=== PATIENT | female | born 1950 | race African-American/Black ===

== ENCOUNTER → 2016-12-18 | Outpatient (CLI) | payer MEDICAID ==
--- NOTE | 2016-12-18 10:57 | WOMENS IMAGING REPORT ---
EXAM DESCRIPTION: BONE DENSITY HIP/SPINE COMPLETED DATE/TIME: 12/18/2016 10:45 am REASON FOR STUDY: M81.8 Z12.31 ENCNTR SCREEN MAMMOGRAM FOR MALIGNANT NEOPLASM OF [place] M81.8 OTHER O STEOPOROSIS WITHOUT CURRENT PATHOLOGICAL FRACTU COMPARISON: None. TECHNIQUE: Dual-Energy X-ray Absorptiometry (DEXA) of the AP Spine and Hip. LIMITATIONS: None. FINDINGS: LUMBAR SPINE: The bone mineral density (BMD) measured from L1-L4 in the AP projection correlates with a T-score of - 0.8, which is normal as defined by the World Health Organization. HIP: The bone mineral density (BMD) measured in the left femoral neck at the hip correlates with a T-score of -1.0, which is osteopenic as defined by the World Health Organization. IMPRESSION: 1. LUMBAR SPINE: Normal 2. HIP: Osteopenic COMMENT: The World Health Organization defines low BMD as follows: T-score: Normal: Greater than -1.0 Osteopenia: Between -1.0 and -2.5 Osteoporosis: Less than -2.5 without fractures Established osteoporosis: Less than -2.5 with fractures In general, you may wish to consider: Diagnosis Treatment Follow-up DEXA Normal BMD Prevention 2-3 years Osteopenia Prevention/Therapy 1-2 years Osteoporosis Therapy Yearly TECHNICAL DOCUMENTATION: JOB ID: [id number]- All Rights Reserved
--- NOTE | 2016-12-18 12:37 | WOMENS IMAGING REPORT ---
EXAM DESCRIPTION: BILAT SCREENING MAMMO W/CAD COMPLETED DATE/TIME: 12/18/2016 10:44 am REASON FOR STUDY: Z12.31, ROUTINE SCREENIG MAMMO Z12.31 ENCNTR SCREEN MAMMOGRAM FOR MALIGNANT NEOPL ASM OF [place] M81.8 OTHER OSTEOPOROSIS WITHOUT CURRENT PATHOLOGICAL FRACTU COMPARISON: None. TECHNIQUE: Standard craniocaudal and mediolateral oblique views of each breast recorded using digita l acquisition. LIMITATIONS: None. FINDINGS: Findings present which are benign by mammographic criteria. No suspicious masses, calcifi cations or architectural distortion. Pertinent benign findings: Benign skin and benign vascular calcifications bilaterally Read with the assistance of CAD. .[facility] - R2 Cenova Version 1.3 .[facility] - R2 Cenova Version 1.3 .[facility] - R2 Cenova Version 2.4 .[facility] [place] R2 Cenova Version 2.4 .[facility] BEDS AT THE [facility] - R2 Vp Lab Version 9.2 Benign mammographic findings may include one or more of the following: Smooth masses, popcorn/rim/co arse calcifications, asymmetries, post-procedure changes, and lesions with long-standing stability. IMPRESSION: BENIGN MAMMOGRAPHIC FINDINGS. BIRADS 2 BREAST DENSITY: b. There are scattered areas of fibroglandular density. BIRAD: 2 BENIGN FINDING(S) RECOMMENDATION: ROUTINE SCREENING Please consider bilateral screening tomosynthesis in December 2017 COMMENT: The patient has been notified of the results by letter per [place] requirements. Additional no tification policies are in place for contacting patient with suspicious or incomplete findings. Quality ID #[id number]: The [employer] recommends an annual screening mammogram for women aged 40 years or over. This facility utilizes a reminder system to ensure that all patients receive reminder letters, and/or direct phone calls for appointments. This includes reminders for routine scr eening mammograms, diagnostic mammograms, or other Breast Imaging Interventions when appropriate. Th is patient will be placed in the appropriate reminder system. The [employer] (ACR) has developed recommendations for screening MRI of the breast s in certain patient populations, to be used in conjunction with mammography. Breast MRI surveillanc e may be appropriate for women with more than 20% lifetime risk of developing breast cancer as deter mined by genetic testing, significant family history of the disease, or history of mantle radiation f or Hodgkins Disease. ACR Practice Guidelines 2008. TECHNICAL DOCUMENTATION: FINDING NUMBER: (1) ASSESSMENT: (1) JOB ID: [id number] [employer]- All Rights Reserved
== END ==
LOC: WI 09:50
PROVIDERS: ATTEND Nurse Practitioner Family
DX: Z12.31 Encounter for screening mammogram for malignant neoplasm of breast (principal); M81.8 Other osteoporosis without current pathological fracture
CPT/HCPCS: 77080; G0202; 77067

== ENCOUNTER → 2017-02-06 | Outpatient (CLI) | payer MEDICARE, MEDICAID ==
[2017-02-06 11:08] LABS: HEMATOCRIT 43.4 % (36.0-47.0); HEMOGLOBIN 14.5 g/dL (12.0-15.5); HGB HCT DIFFERENCE 0.1; MEAN CORPUSCULAR HEMOGLOBIN 31.5 pg (27.0-33.4); MEAN CORPUSCULAR HGB CONC 33.3 g/dL (32.0-36.0); MEAN CORPUSCULAR VOLUME 95 fl (80-97); RED BLOOD COUNT 4.58 10^6/uL (3.72-5.28); RED CELL DISTRIBUTION WIDTH 16.4 % (11.5-14.0); WHITE BLOOD COUNT 4.8 10^3/uL (4.0-10.5)
[2017-02-06 11:12] LABS: APPEARANCE,URINE SLIGHTLY-CLOUDY; BILIRUBIN,URINE NEGATIVE (NEGATIVE); GLUCOSE, URINE NEGATIVE (NEGATIVE); KETONES,URINE NEGATIVE (NEGATIVE); LEUKOCYTE ESTERASE,URINE NEGATIVE (NEGATIVE); NITRITE,URINE NEGATIVE (NEGATIVE); PROTEIN,URINE NEGATIVE (NEGATIVE); URINE SPECIFIC GRAVITY 1.016
[2017-02-06 11:27] LABS: RBC,URINE RARE /HPF
[2017-02-06 11:28] LABS: HYALINE CASTS, URINE 30-50 /LPF
[2017-02-06 11:29] LABS: BACTERIA,URINE 2+ /HPF
[2017-02-06 11:43] LABS: ANION GAP 18 (5-19); BLOOD UREA NITROGEN 23 mg/dL (7-20); CALCIUM 10.6 mg/dL (8.4-10.2); CARBON DIOXIDE 27 mmol/L (22-30); CHLORIDE 106 mmol/L (98-107); CREATININE RESULT 1.58 mg/dL (0.52-1.25); GLUCOSE 124 mg/dL (75-110); POTASSIUM 4.1 mmol/L (3.6-5.0); SODIUM 150.6 mmol/L (137-145)
== END ==
LOC: OD 09:42
PROVIDERS: ATTEND Physician Assistant Medical
DX: I12.9 Hypertensive chronic kidney disease with stage 1 through stage 4 chronic kidney disease, or unspecified chronic kidney disease (principal); N18.2 Chronic kidney disease, stage 2 (mild); E11.9 Type 2 diabetes mellitus without complications
CPT/HCPCS: 36415; 80048; 81001; 85027

== ENCOUNTER → 2017-02-11 | Outpatient (CLI) | payer MEDICARE, MEDICAID ==
[2017-02-11 13:30] LABS: ANION GAP 15 (5-19); BLOOD UREA NITROGEN 28 mg/dL (7-20); CALCIUM 10.5 mg/dL (8.4-10.2); CARBON DIOXIDE 27 mmol/L (22-30); CHLORIDE 103 mmol/L (98-107); CREATININE RESULT 1.44 mg/dL (0.52-1.25); GLUCOSE 126 mg/dL (75-110); POTASSIUM 4.2 mmol/L (3.6-5.0); SODIUM 144.6 mmol/L (137-145)
== END ==
LOC: OD 12:09
PROVIDERS: ATTEND Physician Assistant Medical
DX: E87.0 Hyperosmolality and hypernatremia (principal)
CPT/HCPCS: 36415; 80048

== ENCOUNTER → 2017-04-17 | Outpatient (CLI) | payer MEDICARE, MEDICAID ==
[2017-04-17 14:19] LABS: APPEARANCE,URINE SLIGHTLY-CLOUDY; BILIRUBIN,URINE NEGATIVE (NEGATIVE); GLUCOSE, URINE NEGATIVE (NEGATIVE); KETONES,URINE NEGATIVE (NEGATIVE); LEUKOCYTE ESTERASE,URINE NEGATIVE (NEGATIVE); NITRITE,URINE NEGATIVE (NEGATIVE); PROTEIN,URINE 100 mg/dL (NEGATIVE); URINE SPECIFIC GRAVITY 1.019
[2017-04-17 14:21] LABS: HEMATOCRIT 36.3 % (36.0-47.0); HEMOGLOBIN 11.9 g/dL (12.0-15.5); HGB HCT DIFFERENCE -0.6; MEAN CORPUSCULAR HGB CONC 32.8 g/dL (32.0-36.0); MEAN CORPUSCULAR VOLUME 98 fl (80-97); RED BLOOD COUNT 3.72 10^6/uL (3.72-5.28); RED CELL DISTRIBUTION WIDTH 16.9 % (11.5-14.0)
[2017-04-17 14:53] LABS: ANION GAP 15 (5-19); BLOOD UREA NITROGEN 14 mg/dL (7-20); CALCIUM 9.4 mg/dL (8.4-10.2); CARBON DIOXIDE 27 mmol/L (22-30); CHLORIDE 108 mmol/L (98-107); CREATININE RESULT 1.26 mg/dL (0.52-1.25); GLUCOSE 114 mg/dL (75-110); POTASSIUM 4.5 mmol/L (3.6-5.0)
[2017-04-19 14:38] LABS: CREATININE URINE 204.2 mg/dL (Not Estab.); MICROALBUMIN URINE 338.9 ug/mL (Not Estab.)
== END ==
LOC: OD 13:00
PROVIDERS: ATTEND Physician Assistant Medical
DX: I12.9 Hypertensive chronic kidney disease with stage 1 through stage 4 chronic kidney disease, or unspecified chronic kidney disease (principal); N18.3 Chronic kidney disease, stage 3 (moderate); E11.9 Type 2 diabetes mellitus without complications; E87.1 Hypo-osmolality and hyponatremia
CPT/HCPCS: 36415; 80048; 81001; 82043; 82570; 85027

== ENCOUNTER → 2017-04-21 | Outpatient (CLI) | payer MEDICARE, MEDICAID ==
[2017-04-21 13:41] LABS: ANION GAP 15 (5-19); BLOOD UREA NITROGEN 20 mg/dL (7-20); CALCIUM 9.4 mg/dL (8.4-10.2); CARBON DIOXIDE 28 mmol/L (22-30); CHLORIDE 102 mmol/L (98-107); GLUCOSE 102 mg/dL (75-110); POTASSIUM 4.2 mmol/L (3.6-5.0); SODIUM 144.8 mmol/L (137-145)
== END ==
LOC: OD 12:02
PROVIDERS: ATTEND Internal Medicine Nephrology
DX: E87.0 Hyperosmolality and hypernatremia (principal)
CPT/HCPCS: 36415; 80048

== ENCOUNTER 2017-05-15 10:58 | Emergency (ER) | payer MEDICARE, MEDICAID ==
[2017-05-15] MEDS ORDERED: DIGOXIN INJ 0.5 MG/2 ML AMPULE IV ONE (11:15)
--- NOTE | 2017-05-15 11:15 | ER Document Report ---
ED General - General Stated Complaint: CHEST PAIN Time Seen by Provider: 05/15/17 11:10 Notes: 67-year-old female with a history of congestive heart failure seen by Dr. Lockhart presents after being gradually more unresponsive in the car ride over to her renal doctor. Limited information is available from her son but she was brought in from the waiting room unresponsive by nursing. Her son Jesse states that she is pending defibrillator placement, and has been getting worsening leg and abdominal swelling. She was talking when he got her in the car this morning and then she became unresponsive. She did not complain of any chest pain, no history is available beyond this. TRAVEL OUTSIDE OF THE [place] IN LAST 30 DAYS: No - Related Data Allergies/Adverse Reactions: No Known Allergies Allergy (Verified 05/15/17 12:00) Past Medical History - General Information source: Relative - Social History Smoking Status: Unknown if Ever Smoked Family History: DM - Past Medical History Cardiac Medical History: Reports: Hx Atrial Fibrillation, Hx Hypertension Endocrine Medical History: Reports: Hx Diabetes Mellitus Type 2 Renal/ Medical History: Denies: Hx Peritoneal Dialysis Past Surgical History: Reports: Other - Dental extraction. Review of Systems - Review of Systems Notes: REVIEW OF SYSTEMS Unavailable secondary to altered mental status PHYSICAL EXAMINATION General: Unresponsive Head: Atraumatic, normocephalic ENT: Mouth normal, oropharynx moist, no exudates o Eyes: Conjunctiva normal, pupils equal, lids normal good gaze conjugate. Neck: Positive JVD, supple, no guarding CVS: Tachycardic regular Resp: N normal rate crackles at the bases diminished at bases GI: Markedly distended but soft. Abdominal wall edema present. Ext: Severe bilateral lower extremity edema, anasarca Back: No lesions or deformities Skin: No rash, warm Lymphatic: No lymphadeopathy noted Neuro: Opens eyes to pain only nonverbal -: Yes ROS unobtainable due to patient's medical condition Physical Exam - Vital signs Vitals: Resp 39 H 05/15/17 11:00 Course - Re-evaluation Re-evalutation: 05/15/17 11:14 Patient with apparent end-stage heart failure presents with altered mental status. She is tachycardic atrial for ablation hypotensive and altered. Suspect rapid A. fib cardiogenic shock and end-stage heart failure. Brief echocardiogram shows ascites extremely poor contractility trace pericardial effusion and dilated IVC. Since this is been gradual I do not think this represents pulmonary embolus. I will load her with digoxin, have Levophed at the bedside, give her a judicious fluid bolus, get basic labs including BNP troponin. I discussed with her son Jesse he wants aggressive care up to including intubation, cardioversion, and ACLS type care. 05/15/17 11:26 Patient's reassessment about 11:25 AM shows a blood pressure in the 100s a heart rate in the 110s, this is an improvement. Her mental status is slightly better and she is slightly more awake. Labs are still pending. Reviewed the case with Dr. Lockhart her business director. He does not think she needs to be cardioverted and agrees with rate control, carefully with the digoxin. Given this I want to make sure her potassium is normal given that she has a history of renal failure. Amiodarone would be my alternative. Still in mild cardiac shock I think however not in need of any pressors at this time. Will initiate transfer to [facility] for further care for this advanced heart failure. 05/15/17 12:54 Patient was accepted by Dr. Galdamez it [facility]. On reassessment she is awake and alert. Her creatinine is returned elevated. Her potassium is borderline elevated but there are no EKG changes. I will defer treatment of this divided. Helicopter is almost her. - Vital Signs Vital signs: Temp Pulse Resp BP Pulse Ox 97.7 F 25 H 92/81 L 73 L 05/15/17 12:37 05/15/17 12:37 05/15/17 12:37 05/15/17 12:06 - Laboratory Result Diagrams: 05/15/17 11:05 05/15/17 11:05 Laboratory results interpreted by me: 05/15/17 05/15/17 05/15/17 11:05 11:05 11:05 MCHC 31.2 L RDW 17.1 H PT 17.3 H VBG pCO2 VBG HCO3 Potassium 5.1 H Carbon Dioxide 19 L Anion Gap 22 H BUN 57 H Creatinine 4.36 H Est GFR ( Amer) 12 L Est GFR (Non-Af Amer) 10 L Glucose 186 H Lactic Acid Total Bilirubin 2.6 H Direct Bilirubin 2.0 H AST 45 H Alkaline Phosphatase 173 H Creatine Kinase 148 H NT-Pro-B Natriuret Pep Total Protein 8.5 H Urine Protein Urine Glucose (UA) Urine Ketones Urine Blood Urine Urobilinogen 05/15/17 05/15/17 05/15/17 11:05 11:05 11:05 MCHC RDW PT VBG pCO2 32.8 L VBG HCO3 19.3 L Potassium Carbon Dioxide Anion Gap BUN Creatinine Est GFR ( Amer) Est GFR (Non-Af Amer) Glucose Lactic Acid 5.7 H Total Bilirubin Direct Bilirubin AST Alkaline Phosphatase Creatine Kinase NT-Pro-B Natriuret Pep 12478 H Total Protein Urine Protein Urine Glucose (UA) Urine Ketones Urine Blood Urine Urobilinogen 05/15/17 12:10 MCHC RDW PT VBG pCO2 VBG HCO3 Potassium Carbon Dioxide Anion Gap BUN Creatinine Est GFR ( Amer) Est GFR (Non-Af Amer) Glucose Lactic Acid Total Bilirubin Direct Bilirubin AST Alkaline Phosphatase Creatine Kinase NT-Pro-B Natriuret Pep Total Protein Urine Protein 30 H Urine Glucose (UA) 50 H Urine Ketones TRACE H Urine Blood MODERATE H Urine Urobilinogen 2.0 H Procedures - Ultrasound/Bedside Ultrasound/Bedside Time completed: 11:20 - Cardiac ultrasound Notes: 05/15/17 11:38 Very poor cardiac output. Trace pericardial effusion. Dilated non-collapsing inferior vena cava. Positive abdominal free fluid. Critical Care Note - Critical Care Note Total time excluding time spent on procedures (mins): 71 Comments: The above patient is critically ill. Not including procedures, but including direct re-evaluations, speaking with patient and/or consultants, interpreting results, and documenting, I spent the total amount of minute listed listed above on critical care time Discharge - Discharge Clinical Impression: Acute encephalopathy, Right heart failure with reduced right ventricular function Condition: Critical Disposition: Critical Access Hospital Referrals: Kaz FERNANDEZ MD [Primary Care Provider] - Follow up as needed
[2017-05-15] MEDS ORDERED: NOREPINEPHRINE BITARTRATE INJ/PF 4 MG/4 ML SDV IV ONE (11:16)
[2017-05-15] MEDS ORDERED: DEXTROSE 5%-WATER 250 ML with NOREPINEPHRINE BITARTRATE 4 MG IV PRN ×2 (11:17)
[2017-05-15 11:31] LABS: PROTHROMBIN TIME 17.3 SEC (11.4-15.4)
[2017-05-15 11:36] LABS: HEMOGLOBIN 12.3 g/dL (12.0-15.5); WHITE BLOOD COUNT 5.3 10^3/uL (4.0-10.5)
[2017-05-15 11:37] LABS: VENOUS BLOOD BASE EXCESS -4.8 mmol/L; VENOUS BLOOD HCO3 19.3 mmol/L (20-32); VENOUS BLOOD PCO2 32.8 mmHg (35-63); VENOUS BLOOD PH 7.39 (7.30-7.42)
[2017-05-15 11:41] LABS: HEMATOCRIT 39.5 % (36.0-47.0); HGB HCT DIFFERENCE -2.6; MEAN CORPUSCULAR HEMOGLOBIN 29.7 pg (27.0-33.4); MEAN CORPUSCULAR HGB CONC 31.2 g/dL (32.0-36.0); MEAN CORPUSCULAR VOLUME 95 fl (80-97); RED BLOOD COUNT 4.15 10^6/uL (3.72-5.28); RED CELL DISTRIBUTION WIDTH 17.1 % (11.5-14.0)
[2017-05-15 12:00] LABS: ABSOLUTE EOSINOPHILS# (MANUAL) 0.1 10^3/uL (0.0-0.6); BASOPHILS % (MANUAL) 1 % (0-2); EOSINOPHILS % (MANUAL) 1 % (0-6); LYMPHOCYTES % (MANUAL) 28 % (13-45); TOTAL CELLS COUNTED 100
[2017-05-15 12:02] LABS: TROPONIN I < 0.012 ng/mL
[2017-05-15 12:04] LABS: ANISOCYTOSIS 1+; TOXIC GRANULATION 1+; TOXIC VACUOLATION PRESENT
--- NOTE | 2017-05-15 12:12 | RADIOLOGY REPORT (SQ) ---
EXAM DESCRIPTION: CHEST SINGLE VIEW COMPLETED DATE/TIME: 05/15/2017 11:53 am REASON FOR STUDY: bed t1 sepsis COMPARISON: 04/06/2017. NUMBER OF VIEWS: One view. TECHNIQUE: Single frontal radiographic view of the chest acquired. LIMITATIONS: None. FINDINGS: LUNGS AND PLEURA: No opacities, masses or pneumothorax. No pleural effusion. MEDIASTINUM AND HILAR STRUCTURES: No masses. Contour normal. HEART AND VASCULAR STRUCTURES: Heart enlarged without failure. Normal vasculature. BONES: No acute findings. HARDWARE: None in the chest. OTHER: No other significant finding. IMPRESSION: HEART ENLARGED WITHOUT FAILURE. NO OTHER SIGNIFICANT RADIOGRAPHIC FINDING IN THE CHEST. TECHNICAL DOCUMENTATION: JOB ID: [id number] [employer]- All Rights Reserved
[2017-05-15 12:14] LABS: BLOOD UREA NITROGEN 57 mg/dL (7-20); CALCIUM 9.5 mg/dL (8.4-10.2); CARBON DIOXIDE 19 mmol/L (22-30); CREATININE RESULT 4.36 mg/dL (0.52-1.25); GLUCOSE 186 mg/dL (75-110); POTASSIUM 5.1 mmol/L (3.6-5.0)
[2017-05-15 12:22] LABS: ALANINE AMINOTRANSFERASE 27 U/L (9-52); ALBUMIN 4.2 g/dL (3.5-5.0); ALKALINE PHOSPHATASE 173 U/L (38-126); ASPARTATE AMINO TRANSFERASE 45 U/L (14-36); BILIRUBIN,TOTAL 2.6 mg/dL (0.2-1.3); CHLORIDE 100 mmol/L (98-107); SODIUM 140.5 mmol/L (137-145); TOTAL PROTEIN 8.5 g/dL (6.3-8.2)
[2017-05-15 12:28] LABS: ANION GAP 22 (5-19)
--- NOTE | 2017-05-15 12:32 | EKG REPORT ---
SEVERITY:- ABNORMAL ECG - A. FIB AND ATRIAL FLUTTER VENTRICULAR PREMATURE COMPLEX RIGHT AXIS DEVIATION LOW VOLTAGE THROUGHOUT BORDERLINE R WAVE PROGRESSION, ANTERIOR LEADS NONSPECIFIC T ABNORMALITIES, LATERAL LEADS : Confirmed by: Kevin Armas 15-May-2017 12:31:59
[2017-05-15 12:35] LABS: CREATINE KINASE 148 U/L (30-135)
[2017-05-15 12:39] LABS: APPEARANCE,URINE SLIGHTLY-CLOUDY; BILIRUBIN,URINE NEGATIVE (NEGATIVE); GLUCOSE, URINE 50 mg/dL (NEGATIVE); KETONES,URINE TRACE mg/dL (NEGATIVE); LEUKOCYTE ESTERASE,URINE NEGATIVE (NEGATIVE); NITRITE,URINE NEGATIVE (NEGATIVE); PROTEIN,URINE 30 mg/dL (NEGATIVE); URINE SPECIFIC GRAVITY 1.014
[2017-05-15 16:01] VITALS: BP 91/79
== END 2017-05-15 13:30 | disposition short-term general hospital (02) ==
LOC: ER 10:58
DX: I11.0 Hypertensive heart disease with heart failure (principal); I50.84 End stage heart failure; R57.0 Cardiogenic shock; G93.40 Encephalopathy, unspecified; I31.3 Pericardial effusion (noninflammatory); I48.91 Unspecified atrial fibrillation; E11.9 Type 2 diabetes mellitus without complications; R41.82 Altered mental status, unspecified; R00.0 Tachycardia, unspecified; I95.9 Hypotension, unspecified; R18.8 Other ascites
CPT/HCPCS: 36415; 71010; 80053; 80162; 81001; 82140; 82550; 82553; 82803; 82962; 83605; 83880; 84484; 85025; 85610; 87040; 87086; 93005; 93010; 99291